=== PATIENT | male | born 1940 | race Caucasian/White ===

== ENCOUNTER 2020-08-12 07:31 | Outpatient (REF) | payer MEDICARE, SELFPAY ==
[2020-08-12 08:53] LABS: PSA,Total (Free>4and<10) 0.11 ng/mL (0.00-4.00)
== END 2020-08-12 07:32 | disposition home or self-care (01) ==
LOC: HO.LAB 07:31
PROVIDERS: PCP Internal Medicine; Visit Provider Urology
DX: N40.1 Benign prostatic hyperplasia with lower urinary tract symptoms (principal)
CPT/HCPCS: 84153

== ENCOUNTER → 2020-11-19 13:41 | Outpatient (BNVA) | payer MEDICARE, SELFPAY | PROVIDERS: PCP Internal Medicine; Referring Provider Internal Medicine; Visit Provider Urology | DX: Z13.89 Encounter for screening for other disorder (principal) | CPT/HCPCS: Q3014 ==

== ENCOUNTER 2021-11-09 07:01 | Outpatient (REF) | payer MEDICARE, SELFPAY ==
[2021-11-09 08:37] LABS: Prostate Specific Antigen 0.09 ng/mL (<0.05-4.0)
== END 2021-11-09 07:02 | disposition home or self-care (01) ==
LOC: HO.LAB 07:01
PROVIDERS: PCP Internal Medicine; Visit Provider Urology
DX: Z12.5 Encounter for screening for malignant neoplasm of prostate (principal); N40.1 Benign prostatic hyperplasia with lower urinary tract symptoms; R35.1 Nocturia
CPT/HCPCS: 36415; 84153

== ENCOUNTER → 2021-11-18 09:36 | Outpatient (BNVA) | payer MEDICARE, SELFPAY | PROVIDERS: PCP Internal Medicine; Visit Provider Urology | DX: Z13.89 Encounter for screening for other disorder (principal) | CPT/HCPCS: Q3014 ==

== ENCOUNTER → 2021-12-15 10:17 | Outpatient (BNVA) | payer MEDICARE, SELFPAY | PROVIDERS: PCP Internal Medicine; Visit Provider Psychiatry & Neurology Neurology | DX: F41.9 Anxiety disorder, unspecified (principal); R25.2 Cramp and spasm | CPT/HCPCS: 99212 ==